=== PATIENT | female | born 2000 | race Caucasian/White ===

== ENCOUNTER 2020-03-09 | Inpatient (IN) | payer OTHER ==
[2020-03-09] MEDS: ELECTROLYTE-148 SOLN 1,000 ML IV SCH ×2 (01:00→06:30)
[2020-03-09 01:21] LABS: BASO % 0.2 % (0-2.0); EOS % 0.2 % (0-4.5); HEMATOCRIT 33.3 % (32.4-45.2); HEMOGLOBIN 11.2 GM/dL (10.7-15.3); LYMPH % 7.6 % (8-40); MCH 31.7 pg (25.7-33.7); MCHC 33.6 g/dl (32.0-36.0); MEAN CELL VOLUME 94.3 fl (80-96); MEAN PLT VOLUME 10.2 fl (7.5-11.1); MONO % 7.6 % (3.8-10.2); NEUT % 84.4 % (42.8-82.8); PLATELET COUNT 238 K/MM3 (134-434); RBC 3.53 M/mm3 (3.60-5.2); RDW 13.9 % (11.6-15.6); WHITE BLOOD COUNT 15.9 K/mm3 (4.0-10.0)
[2020-03-09 01:30] VITALS: BMI 29.2
[2020-03-09 01:34] LABS: INR 1.03 (0.83-1.09); PROTHROMBIN TIME (PATIENT) 12.4 SEC (9.7-13.0)
[2020-03-09 01:37] LABS: ACTIVATED PTT 27.5 SECONDS (25.2-36.5)
[2020-03-09 01:40] LABS: CALCIUM 8.7 mg/dL (8.5-10.1); POTASSIUM 4.2 mmol/L (3.5-5.1)
[2020-03-09 01:42] LABS: BLOOD UREA NITROGEN 11.7 mg/dL (7-18)
[2020-03-09 01:45] LABS: CREATININE 0.6 mg/dL (0.55-1.3)
[2020-03-09] MEDS ORDERED: BUTORPHANOL TARTRATE 2 MG/ML VIAL ONE (01:51)
[2020-03-09] MEDS ORDERED: PROMETHAZINE HCL 25 MG/1 ML VIAL ONE (01:51)
[2020-03-09] MEDS ORDERED: BUTORPHANOL TARTRATE 1 MG/ML VIAL IVPB ONE (02:00)
[2020-03-09] MEDS ORDERED: PROMETHAZINE HCL 25 MG/1 ML VIAL IVPB ONE (02:00)
[2020-03-09 03:54] LABS: ANISOCYTOSIS 1+; MACROCYTOSIS 0; PLATELET ESTIMATE NORMAL
[2020-03-09] MEDS ORDERED: FENTANYL/BUPIVACAINE/NS/PF - PCEA - 50 ML DISP.SYRIN EP ONE ×3 (06:05→11:39)
[2020-03-09] MEDS ORDERED: PCA PUMP NR ONE (06:41)
[2020-03-09] MEDS ORDERED: NALOXONE HCL 0.4 MG/ML VIAL IVPUSH PRN (06:48)
[2020-03-09] MEDS ORDERED: BUPIVACAINE HCL/PF 0.25% (2.5MG/ML) 10 ML VIAL ONE ×2 (06:52→10:30)
[2020-03-09] MEDS: FENTANYL/BUPIVACAINE/NS/PF - PCEA - 50 ML DISP.SYRIN EP SCH (07:20)
[2020-03-09] MEDS ORDERED: OXYTOCIN 20 UNITS in 0.9% NS 20 UNIT/1,000 ML INFUS.BAG IV ONE ×2 (09:27→19:18)
[2020-03-09] MEDS ORDERED: LIDOCAINE HCL 1% PRESERVATIVE FREE - 30ML VIAL ONE (09:27)
[2020-03-09 10:12] LABS: COCAINE, UR NEGATIVE ng/ml (CUTOFF=300); OPIATES, URI NEGATIVE ng/ml (CUTOFF=300); PHENCYCLIDINE,URINE NEGATIVE ng/ml (CUTOFF=25); URINE BENZODIAZEPINES NEGATIVE ng/ml (CUTOFF=200)
[2020-03-09 10:15] LABS: METHADONE, UR NEGATIVE ng/ml (CUTOFF=300)
[2020-03-09 10:21] LABS: URINE AMPHETAMINES NEGATIVE ng/ml (CUTOFF=500); URINE BARBITURATES NEGATIVE ng/ml (CUTOFF=200)
[2020-03-09] MEDS ORDERED: LIDO 2%/EPI 1:200000 PRESRVFRE (20 ML SDVIAL) ONE (14:01)
[2020-03-09 14:17] LABS: CORD BASE EXCESS -7.6 mmol/L (0-2); CORD BASE EXCESS -7.8 mmol/L (0-2); CORD HCO3 19.3 mmHg (20-29); CORD PCO2 37.5 mmHg (30-78); CORD PCO2 44.6 mmHg (30-78); CORD pH 7.254 (7.14-7.44); CORD pH 7.3 (7.14-7.44)
[2020-03-09] MEDS ORDERED: BISACODYL 10 MG SUPP.RECT RC PRN (14:33)
[2020-03-09] MEDS ORDERED: METHYLERGONOVINE MALEATE 0.2 MG/1 ML AMP IM PRN (14:33)
[2020-03-09] MEDS ORDERED: BENZOCAINE 28 GM HEMORRHOIDAL OINTMENT TP PRN (14:33)
[2020-03-09] MEDS ORDERED: WITCH HAZEL 50% (TUCKS) 40 PAD/JAR PAD TP PRN (14:33)
[2020-03-09] MEDS ORDERED: BENZOCAINE 20% 57 GM BOTTLE TP PRN (14:33)
[2020-03-09] MEDS ORDERED: OXYTOCIN 20 UNITS in 0.9% NS 20 UNIT/1,000 ML INFUS.BAG IV SCH (14:45)
[2020-03-09] MEDS ORDERED: CLINDAMYCIN PHOSPHATE 600 MG/4 ML VIAL ONE (15:49)
[2020-03-09] MEDS: CLINDAMYCIN 600MG PREMIX IVPB 600 MG/50 ML BAG IVPB SCH ×2 (15:55→23:12)
[2020-03-09] MEDS ORDERED: IBUPROFEN 600 MG TABLET (FP) PO ONE (17:10)
[2020-03-09] MEDS ORDERED: GENTAMICIN SO4 80 MG/2 ML VIAL ONE (17:10)
[2020-03-09] MEDS ORDERED: ACETAMINOPHEN 325 MG TABLET (FP) ONE (17:10)
[2020-03-09] MEDS: GENTAMICIN 80 MG PREMIXED IVPB 80 MG/100 ML BAG IVPB SCH (17:20)
[2020-03-09] MEDS: IBUPROFEN 600 MG TABLET (FP) PO PRN (17:33)
[2020-03-09] MEDS: ACETAMINOPHEN 325 MG TABLET (FP) PO PRN (17:34)
[2020-03-09 17:50] LABS: BASO % 0.1 % (0-2.0); HEMATOCRIT 27.7 % (32.4-45.2); HEMOGLOBIN 9.3 GM/dL (10.7-15.3); LYMPH % 3.9 % (8-40); MCH 31.7 pg (25.7-33.7); MCHC 33.4 g/dl (32.0-36.0); MEAN CELL VOLUME 94.8 fl (80-96); MEAN PLT VOLUME 10.9 fl (7.5-11.1); MONO % 10.4 % (3.8-10.2); NEUT % 85.6 % (42.8-82.8); PLATELET COUNT 233 K/MM3 (134-434); RBC 2.92 M/mm3 (3.60-5.2); WHITE BLOOD COUNT 29.5 K/mm3 (4.0-10.0)
[2020-03-09 18:41] LABS: ANISOCYTOSIS 1+; MACROCYTOSIS 0; PLATELET ESTIMATE NORMAL; TARGET CELLS 1+
[2020-03-10] MEDS: GENTAMICIN 80 MG PREMIXED IVPB 80 MG/100 ML BAG IVPB SCH ×2 (00:01→06:49)
[2020-03-10] MEDS: ACETAMINOPHEN 325 MG TABLET (FP) PO PRN ×2 (01:02→10:39)
[2020-03-10] MEDS: IBUPROFEN 600 MG TABLET (FP) PO PRN ×2 (01:03→10:39)
[2020-03-10] MEDS: CLINDAMYCIN 600MG PREMIX IVPB 600 MG/50 ML BAG IVPB SCH (06:03)
[2020-03-10] MEDS ORDERED: GENTAMICIN SO4 80 MG/2 ML VIAL ONE (06:42)
[2020-03-10 08:33] LABS: BASO % 0.2 % (0-2.0); EOS % 0.3 % (0-4.5); HEMOGLOBIN 7.4 GM/dL (10.7-15.3); MCH 31.9 pg (25.7-33.7); MCHC 33.5 g/dl (32.0-36.0); MEAN CELL VOLUME 95.2 fl (80-96); MEAN PLT VOLUME 10.3 fl (7.5-11.1); MONO % 10.5 % (3.8-10.2); PLATELET COUNT 190 K/MM3 (134-434); RBC 2.31 M/mm3 (3.60-5.2); RDW 14.1 % (11.6-15.6); WHITE BLOOD COUNT 19.5 K/mm3 (4.0-10.0)
[2020-03-10] MEDS: PRENATAL VITAMINS W/ FOLIC ACID TABLET (FP) PO SCH (10:40)
[2020-03-10] MEDS: FENTANYL/BUPIVACAINE/NS/PF - PCEA - 50 ML DISP.SYRIN EP SCH (12:45)
[2020-03-10] MEDS: ELECTROLYTE-148 SOLN 1,000 ML IV SCH (12:45)
[2020-03-10] MEDS ORDERED: SENNOSIDES/DOCUSATE COMBO (SENNA PLUS) TABLET (UD) PO PRN (22:00)
[2020-03-11 08:34] LABS: BASO % 0.3 % (0-2.0); EOS % 0.8 % (0-4.5); HEMATOCRIT 22.3 % (32.4-45.2); HEMOGLOBIN 7.6 GM/dL (10.7-15.3); LYMPH % 15.8 % (8-40); MCH 32.1 pg (25.7-33.7); MCHC 33.9 g/dl (32.0-36.0); MEAN CELL VOLUME 94.8 fl (80-96); MEAN PLT VOLUME 9.8 fl (7.5-11.1); MONO % 8.5 % (3.8-10.2); NEUT % 74.6 % (42.8-82.8); PLATELET COUNT 214 K/MM3 (134-434); RBC 2.35 M/mm3 (3.60-5.2); RDW 14.3 % (11.6-15.6); WHITE BLOOD COUNT 14.8 K/mm3 (4.0-10.0)
[2020-03-11] MEDS: PRENATAL VITAMINS W/ FOLIC ACID TABLET (FP) PO SCH (10:35)
[2020-03-11] MEDS: IBUPROFEN 600 MG TABLET (FP) PO PRN (10:35)
[2020-03-11] MEDS: ACETAMINOPHEN 325 MG TABLET (FP) PO PRN (10:35)
[2020-03-11 11:30] LABS: ANISOCYTOSIS 0; MACROCYTOSIS 0; PLATELET ESTIMATE NORMAL
[2020-03-11 11:57] VITALS: PULSE 92; TEMP 98.5
[2020-03-11 12:55] VITALS: BP 125/99
== END 2020-03-11 13:15 | disposition home or self-care (01) | DRG 560 ==
LOC: JLDR → J3W 19:53
PROVIDERS: ADMIT Obstetrics & Gynecology; ATTEND Obstetrics & Gynecology
PROC: 10E0XZZ Delivery of Products of Conception, External Approach (ICD-10-PCS; principal; 2020-03-09)
PROC: 0W8NXZZ Division of Female Perineum, External Approach (ICD-10-PCS; 2020-03-09)
DX: O99.02 Anemia complicating childbirth (principal); D64.9 Anemia, unspecified; Z3A.39 39 weeks gestation of pregnancy; Z37.0 Single live birth
CPT/HCPCS: 36415; 36600; 59409; 80048; 80307; 82803; 85025; 85610; 85730; 86780; 86850; 86900; 86901; 87389; C9803; U0003

== ENCOUNTER 2024-04-04 07:30 | Inpatient (IN) | payer OTHER ==
[2024-04-04] MEDS ORDERED: OXYTOCIN 30 UNITS in 0.9% NS 30 UNIT/500 ML INFUS.BAG IVPB SCH (08:30)
[2024-04-04] MEDS: ELECTROLYTE-148 SOLN 1,000 ML IV SCH (08:30)
[2024-04-04 08:53] VITALS: BMI 26.7
[2024-04-04] MEDS ORDERED: OXYTOCIN 30 UNITS in 0.9% NS 30 UNIT/500 ML INFUS.BAG IVPB ONE (09:18)
[2024-04-04] MEDS: OXYTOCIN 30 UNITS in 0.9% NS 30 UNIT/500 ML INFUS.BAG IVPB SCH (09:26)
[2024-04-04 10:02] LABS: BASO % 0.4 % (0-2.0); EOS % 0.8 % (0-4.5); HEMATOCRIT 34.8 % (32.4-45.2); HEMOGLOBIN 11.6 GM/dL (10.7-15.3); LYMPH % 14.7 % (8-40); MCH 29.9 pg (25.7-33.7); MCHC 33.3 g/dl (32.0-36.0); MEAN CELL VOLUME 89.8 fl (80-96); MEAN PLT VOLUME 11.9 fl (7.5-11.1); MONO % 10.9 % (3.8-10.2); NEUT % 73.2 % (42.8-82.8); PLATELET COUNT 173 10^3/uL (134-434); RBC 3.87 M/mm3 (3.60-5.2); RDW 15.8 % (11.6-15.6)
[2024-04-04 10:07] LABS: INR 1.03 (0.83-1.09); PROTHROMBIN TIME (PATIENT) 11.2 SEC (9.7-13.0)
[2024-04-04 10:10] LABS: ACTIVATED PTT 26.5 SECONDS (25.2-36.5)
[2024-04-04] MEDS ORDERED: FENTANYL/BUPIVACAINE/NS/PF - PCEA - 50 ML DISP.SYRIN EP ONE (10:21)
[2024-04-04] MEDS: FENTANYL/BUPIVACAINE/NS/PF - PCEA - 50 ML DISP.SYRIN EP SCH (10:35)
[2024-04-04] MEDS ORDERED: NALOXONE HCL 0.4 MG/ML VIAL IVPUSH PRN (10:46)
[2024-04-04 10:48] LABS: POTASSIUM 4.2 mmol/L (3.5-5.1)
[2024-04-04 10:49] LABS: CALCIUM 9.2 mg/dL (8.5-10.1)
[2024-04-04 10:50] LABS: BLOOD UREA NITROGEN 13.5 mg/dL (7-18)
[2024-04-04 10:53] LABS: CREATININE 0.7 mg/dL (0.55-1.3)
[2024-04-04] MEDS ORDERED: OXYTOCIN 20 UNITS in 0.9% NS 20 UNIT/1,000 ML INFUS.BAG IV ONE (12:15)
[2024-04-04] MEDS ORDERED: WITCH HAZEL 50% (TUCKS) 40 PAD/JAR PAD TP PRN (13:29)
[2024-04-04] MEDS ORDERED: METHYLERGONOVINE MALEATE 0.2 MG/1 ML AMP IM PRN (13:29)
[2024-04-04] MEDS ORDERED: oxyCODONE HCL 5 MG TABLET PO PRN (13:29)
[2024-04-04] MEDS ORDERED: BISACODYL 10 MG SUPP.RECT RC PRN (13:29)
[2024-04-04] MEDS ORDERED: OXYTOCIN 20 UNITS in 0.9% NS 20 UNIT/1,000 ML INFUS.BAG IV SCH (13:30)
[2024-04-04 14:15] LABS: CORD BASE EXCESS -11.2 mmol/L (0-2); CORD BASE EXCESS -5.2 mmol/L (0-2); CORD HCO3 18.2 mmHg (20-29); CORD HCO3 20.3 mmHg (20-29); CORD PCO2 39.8 mmHg (30-78); CORD PCO2 54.6 mmHg (30-78); CORD pH 7.141 (7.14-7.44); CORD pH 7.326 (7.14-7.44)
[2024-04-04 16:02] VITALS: RESP 18
[2024-04-04] MEDS: IBUPROFEN 600 MG TABLET (FP) PO PRN (17:32)
[2024-04-04] MEDS: BENZOCAINE 20% 57 GM BOTTLE TP PRN (17:32)
[2024-04-04] MEDS: ACETAMINOPHEN 325 MG TABLET (FP) PO PRN (19:31)
[2024-04-05] MEDS: BENZOCAINE 28 GM HEMORRHOIDAL OINTMENT TP PRN (04:36)
[2024-04-05 07:45] LABS: BASO % 0.3 % (0-2.0); EOS % 0.7 % (0-4.5); HEMATOCRIT 33.8 % (32.4-45.2); HEMOGLOBIN 10.8 GM/dL (10.7-15.3); LYMPH % 13.4 % (8-40); MCHC 31.8 g/dl (32.0-36.0); MEAN CELL VOLUME 91.3 fl (80-96); MEAN PLT VOLUME 11.7 fl (7.5-11.1); MONO % 10.4 % (3.8-10.2); NEUT % 75.2 % (42.8-82.8); PLATELET COUNT 157 10^3/uL (134-434); RDW 15.5 % (11.6-15.6); WHITE BLOOD COUNT 15.6 K/mm3 (4.0-10.0)
[2024-04-05] MEDS ORDERED: SENNOSIDES/DOCUSATE COMBO (SENNA PLUS) TABLET (UD) PO PRN (22:00)
[2024-04-06 09:43] VITALS: BP 124/88; PULSE 60; TEMP 98.1
== END 2024-04-06 15:05 | disposition home or self-care (01) | DRG 560 ==
LOC: JLDR 07:30 → J3W 15:00
PROVIDERS: ADMIT Obstetrics & Gynecology; ATTEND Obstetrics & Gynecology
PROC: 10E0XZZ Delivery of Products of Conception, External Approach (ICD-10-PCS; principal; 2024-04-04)
DX: O48.0 Post-term pregnancy (principal); O69.81X0 Labor and delivery complicated by cord around neck, without compression, not applicable or unspecified; Z3A.40 40 weeks gestation of pregnancy; Z37.0 Single live birth
CPT/HCPCS: 36415; 36600; 59409; 80048; 82803; 85025; 85610; 85730; 86780; 86850; 86900; 86901